=== PATIENT | male | born 1970 | race Caucasian/White ===

== ENCOUNTER 2018-08-07 13:33 | Emergency (ER) | payer OTHER ==
[~2018-08-07] VITALS: Ht 177.8 cm; Wt 72.6 kg
[2018-08-07 14:25] LABS: ABSOLUTE LYMPHOCYTES 1.3 thou/uL (0.8-5.3); ABSOLUTE MONOCYTES 0.7 thou/uL (0.0-1.2); ABSOLUTE NEUTROPHILS 5.9 thou/uL (1.6-8.1); BASOPHILS 0.4 %; EOSINOPHILS 0.3 %; HEMATOCRIT 45.4 % (42.0-52.0); HEMOGLOBIN 15.9 gm/dL (14.0-18.0); LYMPHOCYTES 16.7 %; MCH 32.9 pg (26.0-34.0); MCV 93.9 fL (80.0-100.0); MONOCYTES 8.2 %; MPV 7.2 fl. (7.2-11.1); NUCLEATED RBCS 0 /100WBC; PLATELET COUNT* 230 thou/uL (150-400); POLYS 74.4 %; RBC 4.83 mil/uL (4.50-6.00); RDW-CV 13.2 % (10.5-14.5); WBC 7.9 thou/uL (4.0-11.0)
[2018-08-07 14:43] LABS: ALBUMIN 3.7 g/dL (3.4-5.0); ALKALINE PHOSPHATASE 58 U/L (46-116); ANION GAP 13 mmol/L (7-16); BUN 21 mg/dL (7-18); CALCIUM 8.9 mg/dL (8.5-10.1); CHLORIDE 98 mmol/L (98-107); CO2 25 mmol/L (21-32); GLUCOSE 104 mg/dL (70-99); POTASSIUM 4.1 mmol/L (3.5-5.1); SGOT 22 U/L (15-37); SGPT 35 U/L (30-65); SODIUM 136 mmol/L (136-145); TOTAL BILIRUBIN 0.3 mg/dL (<0.1-1.0); TOTAL PROTEIN 7.2 g/dL (6.4-8.2); TROPONIN-I LEVEL <0.06 ng/mL (<0.06)
[2018-08-07 14:43] LABS: URINE BILIRUBIN NEGATIVE (Negative); URINE BLOOD NEGATIVE (Negative); URINE CLARITY CLEAR; URINE COLOR YELLOW; URINE GLUCOSE-RANDOM NEGATIVE (Negative); URINE KETONES TRACE (Negative); URINE LEUKOCYTES-REFLEX NEGATIVE (Negative); URINE NITRITE-REFLEX NEGATIVE (Negative); URINE PROTEIN NEGATIVE (Negative); URINE SPECIFIC GRAVITY 1.015 (1.005-1.030); URINE UROBILINOGEN 0.2 E.U./dl (0.2-1.0)
[2018-08-07 14:48] LABS: AMP/METHAMP Negative (Negative); BARBITURATES Negative (Negative); BENZODIAZEPINES Negative (Negative); COCAINE Negative (Negative); METHADONE Negative (Negative); OPIATES Negative (Negative); PCP Negative (Negative); THC Negative (Negative)
[2018-08-07 15:27] VITALS: BP 144/86
--- NOTE | 2018-08-08 17:43 | EKG ---
[place] [address] ELECTROCARDIOGRAM REPORT Name: ALEXANDRASUNNY ROMY Room: [facility]#: [id number] Admission: 08/07/18 Attend Phys: Discharge: 08/07/18 Date of : 72 Report #: [id number] THIS REPORT FOR: //name// [facility] ED Test Date: 2018-08-07 Test Time: 14:19:47 Pat Name: SUNNY MORRIS Department: Room: Gender: M Services Advisor: SOREN : 1970 Requested By: Maria Del Carmen Noguera Order Number: [id number] Lula MD: Rafael Hanson Measurements Intervals [place] Rate: 92 P: 43 OK: 162 QRS: 68 QRSD: 98 T: 34 QT: 337 QTc: 417 Interpretive Statements Sinus rhythm RSR' in V1 or V2, probably normal variant Baseline wander in lead(s) I,aVL,V4,V5 No previous ECG available for comparison Electronically Signed On 08-08-2018 17:43:46 CDT by Rafael Hanson [email or web address] <ELECTRONICALLY SIGNED> By: Rafael Hanson MD, [facility] 08/08/18 1743 [id number] 141 Rafael Hanson MD, [facility] /EPI
== END 2018-08-07 15:28 | disposition home or self-care (01) ==
LOC: M.ERS 13:33
PROVIDERS: Personal Emergency Response Attendant
DX: E86.0 Dehydration (principal); R42 Dizziness and giddiness; E78.00 Pure hypercholesterolemia, unspecified; F17.210 Nicotine dependence, cigarettes, uncomplicated